=== PATIENT | male | born 1975 | race Native Hawaiian/Other Pacific Islander ===

== ENCOUNTER 2017-11-20 16:42 | Emergency (ER) | payer OTHER ==
[2017-11-20 16:54] VITALS: BP 148/90; PULSE 70; RESP 19; TEMP 98.1; O2SAT 100
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
== END 2017-11-20 18:42 | disposition home or self-care (01) ==
LOC: H.ER 16:42
DX: M54.2 Cervicalgia (principal); V43.62XA Car passenger injured in collision with other type car in traffic accident, initial encounter; Y92.410 Unspecified street and highway as the place of occurrence of the external cause